=== PATIENT | female | born 1980 | race Caucasian/White ===

== ENCOUNTER 2017-10-12 18:47 | Emergency (ER) | payer MEDICAID, SELFPAY ==
--- NOTE | 2017-10-12 18:47 | DT_ITS ---
This patient was seen during an EMR downtime October 06, 2017 - October 13, 2017. This patient may have a combination of paper and electronic documentation or all paper documentation. All documentation is viewable within the e-chart portion of [facility] for each patient visit.
== END 2017-10-12 19:08 | disposition home or self-care (01) ==
PROVIDERS: Emergency Provider Emergency Medicine; Family Provider Family Medicine; PCP Family Medicine
DX: N63.0 Unspecified lump in unspecified breast (principal); N64.4 Mastodynia; N64.52 Nipple discharge; N64.59 Other signs and symptoms in breast; F17.200 Nicotine dependence, unspecified, uncomplicated
CPT/HCPCS: 99283

== ENCOUNTER → 2017-10-21 09:05 | Outpatient (CLI) | payer MEDICAID, SELFPAY ==
--- NOTE | 2017-10-21 09:07 | US_ITS ---
STUDY: ULTRASOUND BREAST - LEFT REASON FOR EXAM: Female, 37 years old. Palpable and painful lump left breast. TECHNIQUE: Axial and longitudinal images of the LEFT breast were performed with a high resolution ultrasound transducer. COMPARISON: Comparison is made with prior ultrasound the left breast dated May 09, 2017. FINDINGS: LEFT Breast: There now is evidence of a 2.6 cm x 2.7 cm x 3.2 cm complex solid and cystic mass in the retroareolar region of the breast. This corresponds to the mammographic abnormality. Increased vascularity is seen. This may represent an abscess collection. Drainage is recommended. US/Breast Limited Unilateral IMPRESSION: 2.6 cm x 2.7 cm x 3.2 cm complex solid and cystic mass in the retroareolar region of the left breast. This corresponds to the palpable abnormality. Abscess should be ruled out. ASSESSMENT CATEGORY: BIRADS Category 4: Suspicious -drainage Should Be Considered. A letter regarding these results will be sent to the patient by the facility within 30 days. Electronically Signed: Bennie Pace MD at 12:35 EDT Tel [phone], Service support ,
--- NOTE | 2017-10-21 09:40 | BI_ITS ---
MAMMOGRAPHY - UNILATERAL DIAGNOSTIC: LEFT BREAST REASON FOR EXAM: Female, 37 years old. Six-month history of a left nipple discharge and pain. Palpable abnormality. Left nipple inversion. PERTINENT HISTORY: Non-contributory. TECHNIQUE: Digital unilateral breast radha (3D mammographic acquisition) in the CC and MLO projections. 2-D mediolateral oblique (MLO) and craniocaudad (CC) views of both breasts were obtained. CAD: Full Field Digital Mammography with Computer Added Detection was performed. COMPARISON: Comparison is made with prior examination dated May 09, 2017. FINDINGS: Breast Composition: There are scattered areas of fibroglandular density. There now is evidence of a 3.6 cm x 3.5 cm slightly irregular nodular density in the retroareolar region of the breast. This corresponds to the palpable abnormality. Correlation with ultrasound is recommended. No other significant abnormalities are identified. BI/DIAG MAMM W/CAD, UNILAT IMPRESSION: New 3.6 cm x 3.5 cm slightly irregular nodular density in the retroareolar region of the left breast as described. Correlation with the ultrasound is recommended. ASSESSMENT CATEGORY: BIRADS Category 0: Incomplete. Need additional imaging evaluation. A letter regarding these results will be sent to the patient by the facility within 30 days. Approximately 10% of breast cancers are not detected by mammography. A normal mammogram should not delay biopsy of a clinically suspicious abnormality. Electronically Signed: Bennie Pace MD at 11:35 EDT Tel [phone], Service support ,
== END ==
PROVIDERS: Family Provider Family Medicine; PCP Family Medicine; Visit Provider Surgery
DX: N63.20 Unspecified lump in the left breast, unspecified quadrant (principal)
CPT/HCPCS: 76642; 77061; 77065; G0279

== ENCOUNTER → 2017-10-23 17:13 | Outpatient (CLI) | payer MEDICAID, SELFPAY | PROVIDERS: Visit Provider Surgery | DX: N61.1 Abscess of the breast and nipple (principal) | CPT/HCPCS: 87070; 87075; 87076; 87077; 87205 ==

== ENCOUNTER → 2017-12-16 12:22 | Outpatient (CLI) | payer MEDICAID, SELFPAY | PROVIDERS: Visit Provider Surgery | DX: N61.1 Abscess of the breast and nipple (principal) | CPT/HCPCS: 87070; 87075; 87076; 87077; 87205 ==

== ENCOUNTER → 2018-01-16 16:59 | Outpatient (CLI) | payer MEDICAID, SELFPAY | PROVIDERS: Visit Provider Surgery | DX: N61.1 Abscess of the breast and nipple (principal) | CPT/HCPCS: 87070; 87075; 87205 ==

== ENCOUNTER → 2018-01-23 16:07 | Outpatient (CLI) | payer MEDICAID, SELFPAY | PROVIDERS: Visit Provider Surgery | DX: N61.1 Abscess of the breast and nipple (principal) | CPT/HCPCS: 87070; 87075; 87205 ==

== ENCOUNTER 2018-02-05 08:14 | Day surgery (SDC) | payer MEDICAID, SELFPAY ==
--- NOTE | 2018-02-05 | ABS_PTH ---
PATIENT: ZA HART LOC: [facility] – [place] U#:[id number] AGE/SX: 37/F ROOM: RE02/05/[address]: Dr. Krunal Ray MD : 1980 BED: DIS: 02/05/2018 SPEC #: [id number] RECD: 02/05/18 13:27 STATUS: ESTEFANIA REEboni #: [id number] TAMARA: 02/05/18 00:[address]: Krunal Ray DEPT: SURGICAL PATHOLOGY RECD BY: Gigi Gomez ENTERED: 02/05/18 13:27 SP TYPE: Abscess OTHR DR: Dr. Reece Dixon MD Tissues: Left breast, NOS Procedures: Surgery Specimen Level III HEADER OPERATION: Surgical preparation incision, drainage and excisional debridement PRE-OP DIAGNOSIS: Left breast abscess, retroareolar TISSUE SUBMITTED: Left breast abscess MICROSCOPIC DIAGNOSIS Left breast abscess: Breast tissue with focal fat necrosis and chronic inflammation. SJ:elif 02/06/18 MICROSCOPIC DESCRIPTION Slides are reviewed. GROSS DESCRIPTION Received are three variable sized pieces of florez-yellow adipose tissue that in aggregate measure 4 x 4 x 1 cm. No mass lesion is identified. Ordnance Officer sections are submitted in one cassette. / SJ:rg 02/05/18 TC:3 CPT: 58092
--- NOTE | 2018-02-05 08:23 | EKG12_ITS ---
Test Reason : PREOP Blood Pressure : / mmHG Vent. Rate : 074 BPM Atrial Rate : 074 BPM P-R Int : 128 ms QRS Dur : 074 ms QT Int : 368 ms P-R-T Axes : 059 071 035 degrees QTc Int : 408 ms Normal sinus rhythm Normal ECG When compared with ECG of 04-SEP-2016 08:54, No significant change was found Confirmed by KYLIE OLVERA, HAILEE ([id number]), editorial cartoonist NATALIE BURGESS ([id number]) on 02/09/2018 3:59:53 PM Referred By: Krunal Ray Confirmed By:HAILEE ESPINAL MD
[2018-02-05 08:35] VITALS: BP 117/81; PULSE 72; RESP 16; TEMP 36.4; O2SAT 99; BMI 28.5
[2018-02-05 08:38] LABS: Hematocrit 42.5 % (37-47); Hemoglobin 14.6 g/dl (12.0-15.0); Mean Corp Hgb Conc 34.4 g/gl (32-36); Mean Corpuscular Hgb 31.5 pg (27.0-32.0); Mean Corpuscular Volume 91.8 fL (81-99); Mean Platelet Vol. 10.1 fl (6.2-12.0); Platelet Count 228 K/mm3 (150-450); RBC Distribution Width CV 13.8 % (11.6-14.6); RBC Distribution Width SD 45.9 fl (35.1-43.9); Red Blood Count 4.63 M/mm3 (4.2-5.4); White Blood Count 6.2 K/mm3 (4.4-11.0)
[2018-02-05 08:39] LABS: Scan Indicated on CBC? Y/N NO
--- NOTE | 2018-02-05 09:30 | ABS_PTH ---
PATIENT: ZA HART [place] [facility] [place][id number] AGE/SX: 37/F ROOM: RE02/05/[address]: Dr. Krunal Ray MD : 1980 BED: DIS: 02/05/2018 SPEC #: [id number] RECD: 02/06/18 08:31 STATUS: ESTEFANIA NORBERTO #: [id number] TAMARA: 02/05/18 09:[address]: Krunal Ray DEPT: SURGICAL PATHOLOGY RECD BY: Robinson Isaac ENTERED: 02/06/18 11:53 SP TYPE: Abscess OTHR DR: Dr. Reece Dixon MD Tissues: Left breast, NOS Procedures: Surgery Specimen Level IV HEADER OPERATION: Surgical preparation incision and drainage and excisional debridement PRE-OP DIAGNOSIS: Left breast abscess, retroareolar TISSUE SUBMITTED: Left breast abscess MICROSCOPIC DIAGNOSIS Left breast abscess: Breast tissue with focal fat necrosis, acute and chronic inflammation and foreign body giant cell reaction. See comment. SJ:elif 02/09/18 COMMENT Please make reference to previous specimen ([id number]) left breast abscess with diagnosis of breast tissue with focal fat necrosis and chronic inflammation. MICROSCOPIC DESCRIPTION Slides are reviewed. GROSS DESCRIPTION Received in fixative is one container labeled with the patient's name and designated left breast abscess. The specimen consists of a piece of fibroadipose tissue measuring 6 x 4 x 2 cm. A piece of skin is also noted at one edge of the specimen measuring 4 x 1.2 cm. Sections do not reveal any mass lesion. A focal congested area is noted. Mud Worker sections are submitted in four cassettes. Cassette 1 also contains the skin lesion. / JUAN DANIEL:elif 02/06/18 TC:2 CPT: 21050
[2018-02-05] MEDS: Metoclopramide 10 MG/2 ML Vial IV (10:00)
[2018-02-05] MEDS: Famotidine 20 MG Tablet 40 MG PO (10:00)
[2018-02-05] MEDS: DiphenhydrAMINE 50 MG/ML Syringe 25 MG IV (10:00)
--- NOTE | 2018-02-05 12:32 | OP.PN_ITS ---
Immediate Post-Op Note Date of Procedure: 02/05/18 Primary Surgeon/Physician: Krunal Ray grader tender: None Pre-Operative Diagnosis: 1. 3 cm recurrent painful abscess left breast in retroareolar region. 2. Nipple discharge left breast. 3. pseudoptosis breasts. 4. Smoker. Post-Operative Diagnosis: Same. Surgery/Procedure Performed:: Surgical preparation left breast in retroareolar region with incision and drainage and excisional debridement abscess (12 cm2). Description of Surgical Findings:: 37 year old woman presents with a recurrent left breast abscess that developed shortly after she gave about 16 months ago. She did not breast feed. She does have nipple drainage. She denies fever. She denies trauma. A mammogram and ultrasound was done on 10/21/17. The mammogram showed a 3.6 x 3.5 cm slightly irregular nodular density in the retroareolar region of the left breast. The ultrasound showed a 2.6 x 2.7 x 3.2 cm complex solid and cystic mass in the retroareolar region of the left breast suspicious for abscess. She saw Dr. Bhakta who performed drainage of the fluid collection in her office under ultrasound guidance. She did this 4 times according to the patient. The fluid collection has recurred. A recent culture on 01/16/18 showed Anaerobic cocci. She was placed on Augmentin. Because of its location in the retroareolar region, she presented for surgical options for treatment. Today the patient underwent surgical preparation left breast in retroareolar region with incision and drainage and excisional debridement abscess (12 cm2). Size of defect left breast in retroareolar region - 6 x 2 x 5 cm. Estimated Blood Loss: 10 ml. Specimen's removed: Abscess left breast in retroareolar region to Pathology and Microbiology. Drains: None. Type of Anesthesia:: General - Admit VTE Documentation VTE Present on Admission: No VTE Mechan Device Prophylaxis: SCD's VTE Pharm Prophylaxis ordered?: No
[2018-02-05 12:36] VITALS: BP 106/61; BP 117/81; PULSE 87; RESP 18; TEMP 36.6; O2SAT 93
--- NOTE | 2018-02-05 12:37 | PCM.DC ---
You will use the following diet at home:: No restrictions, Other - encourage nutritional supplementation with protein to help the healing process. Discharge Activity: May not drive while taking narcotic pain medications., May Shower, May Not Shower - until Friday02/09/18. After that may shower on the days the dressing is changed., - - keep head elevated. no heavy lifting. May shower in (days): 4 May resume sexual activity in: No Restrictions Weight Bearing Status: Weight bearing as tolerated Lifting Restrictions: 20 lbs. Keep extremity elevated above heart level: - - elevate head. Call your doctor if your incision/area has: Continuous Slow Oozing, Sudden Increased Bleeding, Increased Pain/ Swelling, Increased Redness, Foul Smelling Discharge, Swelling at the incision site Call your doctor if you observe: Fever of 101 or Higher, Coldness, Increased Pain, Shortness of breath, Chest pain, Calf discomfort, Uncontrolled pain Suture Line Care: - - dressing changes with Silver dressings. Will do first dressing change in the office. Cleanse incision/area with: - - beginning friday02/09/18, may get the wound wet in the shower on the days the dressing is changed. Allergies/Adverse Reactions: Allergies Penicillins Allergy (Verified 02/02/18 13:43) Hives Medications to take at Discharge oxycodone-acetaminophen 5 mg-325 mg tablet See Rx Instructions PO 4X/DAY PRN #40 tab 02/04/18 Amoxicillin/Potassium Clav [Amox-Clav 875-125 mg Tablet] 1 tab PO BID #20 tab 02/05/18 Oxycodone HCl/Acetaminophen [Percocet 5/325] 1 - 2 tab PO Q4H PRN PRN 7 Days #40 tab 02/05/18 The following prescriptions were given: Oxycodone HCl/Acetaminophen [Percocet 5/325] 1 - 2 tab PO Q4H PRN PRN 7 Days #40 tab PRN Reason: Pain Amoxicillin/Potassium Clav [Amox-Clav 875-125 mg Tablet] 1 tab PO BID #20 tab Primary Care Physician: Reece Dixon MD [Primary Care Provider] - Test Results: Test results from this visit will be discussed in further detail at your follow-up appointment, if applicable. Please Follow Up With: Krunal Ray MD When: friday02/06/18. call [phone] for appt. Proposed Discharge Date: 02/05/18
--- NOTE | 2018-02-05 12:42 | DCINST_ITS ---
You will use the following diet at home:: No restrictions, Other - encourage nutritional supplementation with protein to help the healing process. Discharge Activity: May not drive while taking narcotic pain medications., May Shower, May Not Shower - until Friday02/09/18. After that may shower on the days the dressing is changed., - - keep head elevated. no heavy lifting. May shower in (days): 4 May resume sexual activity in: No Restrictions Weight Bearing Status: Weight bearing as tolerated Lifting Restrictions: 20 lbs. Keep extremity elevated above heart level: - - elevate head. Call your doctor if your incision/area has: Continuous Slow Oozing, Sudden Increased Bleeding, Increased Pain/ Swelling, Increased Redness, Foul Smelling Discharge, Swelling at the incision site Call your doctor if you observe: Fever of 101 or Higher, Coldness, Increased Pain, Shortness of breath, Chest pain, Calf discomfort, Uncontrolled pain Suture Line Care: - - dressing changes with Silver dressings. Will do first dressing change in the office. Cleanse incision/area with: - - beginning friday02/09/18, may get the wound wet in the shower on the days the dressing is changed. Allergies/Adverse Reactions: Allergies Penicillins Allergy (Verified 02/02/18 13:43) Hives Medications to take at Discharge oxycodone-acetaminophen 5 mg-325 mg tablet See Rx Instructions PO 4X/DAY PRN #40 tab 02/04/18 Amoxicillin/Potassium Clav [Amox-Clav 875-125 mg Tablet] 1 tab PO BID #20 tab 02/05/18 Oxycodone HCl/Acetaminophen [Percocet 5/325] 1 - 2 tab PO Q4H PRN PRN 7 Days #40 tab 02/05/18 The following prescriptions were given: Oxycodone HCl/Acetaminophen [Percocet 5/325] 1 - 2 tab PO Q4H PRN PRN 7 Days #40 tab PRN Reason: Pain Amoxicillin/Potassium Clav [Amox-Clav 875-125 mg Tablet] 1 tab PO BID #20 tab Primary Care Physician: Reece Dixon MD [Primary Care Provider] - Test Results: Test results from this visit will be discussed in further detail at your follow- up appointment, if applicable. Please Follow Up With: Krunal Ray MD When: friday02/06/18. call [phone] for appt. Proposed Discharge Date: 02/05/18
[2018-02-05 12:46] VITALS: BP 104/69; BP 117/81; PULSE 86; RESP 16; TEMP 36.9; O2SAT 95
[2018-02-05 13:22] VITALS: BP 117/81
--- NOTE | 2018-02-05 16:47 | PCM.OPRPT ---
Report of Operation Date of Procedure: 02/05/18 Pre-Operative Diagnosis: 1. 3 cm recurrent painful abscess left breast in retroareolar region. 2. Nipple discharge left breast. 3. pseudoptosis breasts. 4. Smoker. Post-Operative Diagnosis: Same. Surgery/Procedure Performed:: Surgical preparation left breast in retroareolar region with incision and drainage and excisional debridement abscess (12 cm2). Description of Surgical Findings:: 37 year old woman presents with a recurrent left breast abscess that developed shortly after she gave about 16 months ago. She did not breast feed. She does have nipple drainage. She denies fever. She denies trauma. A mammogram and ultrasound was done on 10/21/17. The mammogram showed a 3.6 x 3.5 cm slightly irregular nodular density in the retroareolar region of the left breast. The ultrasound showed a 2.6 x 2.7 x 3.2 cm complex solid and cystic mass in the retroareolar region of the left breast suspicious for abscess. She saw Dr. Bhakta who performed drainage of the fluid collection in her office under ultrasound guidance. She did this 4 times according to the patient. The fluid collection has recurred. A recent culture on 01/16/18 showed Anaerobic cocci. She was placed on Augmentin. Because of its location in the retroareolar region, she presents today for operative intervention. Patient was informed of the risks and complications of the procedure including alternatives to surgery. These were discussed with the patient personally. Patient voices understanding and wishes to proceed. Some of the risks and complications were included in a form from the [employer]. Encouraged patient to stop smoking as it may have deleterious effects on wound healing. Size of defect left breast in retroareolar region - 6 x 2 x 5 cm. hand hose cutter: None Type of Anesthesia:: General Specimen's removed: Abscess left breast in retroareolar region to Pathology and Microbiology. Drains: None. Estimated Blood Loss (mL): 10 ml. Description of Procedure: Patient was taken to OR in supine position and was placed under general anesthesia. The left breast was prepped and draped in the usual fashion. SCD's were placed for DVT prophylaxis. Perioperative antibiotics were given intravenously. A crescenteric marking was made on inferior aspect of the areola. Using xylocaine with epinephrine, these markings were infiltrated. After waiting 5 minutes for the anesthetic to take effect, incision was made in a crescenteric fashion into the subcutaneous tissue. A lot of palpable hardness was noted. Some pus was seen in the retroareolar area. A lot of fat necrosis was present. The palpable hardness was excised which extended up to the nipple areolar complex. The ducts that appeared to be involved with the infection were excised and debrided. During the debridement, a large cavity was entered with thickened capsular scar tissue. This thickened capsular tissue was excised and debrided. Some of the tissue was sent to Microbiology for culture. The rest of the tissue was sent to Pathology for analysis to rule out carcinoma. The wound was irrigated with saline. Hemostasis was obtained with electrocautery. The size of the defect after incision and drainage and excisional debridement was 6 x 2 x 5 cm. The wound was packed with Mepitel nonadherent dressing followed by Kerlix gauze and Betadine followed by ABD pad and compression JESUS wrap. Patient tolerated the procedure well and was sent to PACU in satisfactory condition. Patient will be sent home on antibiotics and pain medication. Patient will followup in the office tomorrow for a wound check and will begin Silver dressing changes. The following week, we will discuss the Pathology report and the Microbiology report with the patient. A positive culture may necessitate antibiotic modification. Will encourage nutritional supplementation with protein to help the healing process. Grafts/Implants Used: None. - Complications None. - Admit VTE Documentation VTE Present on Admission: No VTE Mechan Device Prophylaxis: SCD's VTE Pharm Prophylaxis ordered?: No Code Visit Surgery Charges CPT - 43116 ICD-10 - N61.1, N64.4, N63.42, N64.52, N64.89, S21.002A, F17.200 06978 N61.1, N64.4, N63.42, N64.52, N64.89, F17.200
--- NOTE | 2018-02-06 11:48 | OP.PCM_ITS ---
Report of Operation Date of Procedure: 02/05/18 Pre-Operative Diagnosis: 1. 3 cm recurrent painful abscess left breast in retroareolar region. 2. Nipple discharge left breast. 3. pseudoptosis breasts. 4. Smoker. Post-Operative Diagnosis: Same. Surgery/Procedure Performed:: Surgical preparation left breast in retroareolar region with incision and drainage and excisional debridement abscess (12 cm2). Description of Surgical Findings:: 37 year old woman presents with a recurrent left breast abscess that developed shortly after she gave about 16 months ago. She did not breast feed. She does have nipple drainage. She denies fever. She denies trauma. A mammogram and ultrasound was done on 10/21/17. The mammogram showed a 3.6 x 3.5 cm slightly irregular nodular density in the retroareolar region of the left breas t. The ultrasound showed a 2.6 x 2.7 x 3.2 cm complex solid and cystic mass in the retroareolar region of the left breast suspicious for abscess. She saw Dr. Bhakta who performed drainage of the fluid collection in her office under ultrasound guidance. She did this 4 times according to the patient. The fluid collection has recurred. A recent culture on 01/16/18 showed Anaerobic cocci. She was placed on Augmentin. Because of its location in the retroareolar region, she presents today for operative intervention. Patient was informed of the risks and complications of the procedure including alternatives to surgery. These were discussed with the patient personally. Patient voices understanding and wishes to proceed. Some of the risks and complications were included in a form from the [employer]. Encouraged patient to stop smoking as it may have deleterious effects on wound healing. Size of defect left breast in retroareolar region - 6 x 2 x 5 cm. ceiling cleaner: None Type of Anesthesia:: General Specimen's removed: Abscess left breast in retroareolar region to Pathology and Microbiology. Drains: None. Estimated Blood Loss (mL): 10 ml. Description of Procedure: Patient was taken to OR in supine position and was placed under general anesthesia. The left breast was prepped and draped in the usual fashion. SCD's were placed for DVT prophylaxis. Perioperative antibiotics were given intravenously. A crescenteric marking was made on inferior aspect of the areola. Using xylocaine with epinephrine, these markings were infiltrated. After waiting 5 minutes for the anesthetic to take effect, incision was made in a crescenteric fashion into the subcutaneous tissue. A lot of palpable hardness was noted. Some pus was seen in the retroareolar area. A lot of fat necrosis was present. The palpable hardness was excised which extended up to the nipple areolar complex. The ducts that appeared to be involved with the infection were excised and debrided. During the debridement, a large cavity was entered with thickened capsular scar tissue. This thickened capsular tissue was excised and debrided. Some of the tissue was sent to Microbiology for culture. The rest of the tissue was sent to Pathology for analysis to rule out carcinoma. The wound was irrigated with saline. Hemostasis was obtained with electrocautery. The size of the defect after incision and drainage and excisional debridement was 6 x 2 x 5 cm. The wound was packed with Mepitel nonadherent dressing followed by Kerlix gauze and Betadine followed by ABD pad and compression JESUS wrap. Patient tolerated the procedure well and was sent to PACU in satisfactory condition. Patient will be sent home on antibiotics and pain medication. Patient will followup in the office tomorrow for a wound check and will begin Si lver dressing changes. The following week, we will discuss the Pathology report and the Microbiology report with the patient. A positive culture may necessitate antibiotic modification. Will encourage nutritional supplementation with protein to help the healing process. Grafts/Implants Used: None. - Complications None. - Admit VTE Documentation VTE Present on Admission: No VTE Mechan Device Prophylaxis: SCD's VTE Pharm Prophylaxis ordered?: No Code Visit Surgery Charges CPT - 19157 ICD-10 - N61.1, N64.4, N63.42, N64.52, N64.89, S21.002A, F17.200 17182 N61.1, N64.4, N63.42, N64.52, N64.89, F17.200
== END 2018-02-05 13:27 | disposition home or self-care (01) ==
LOC: SDC 08:15 → AC 08:15
PROVIDERS: Anesthesiology; Family Provider Family Medicine; PCP Family Medicine; Referring Provider Surgery; Visit Provider Surgery
PROC: (CPT 19020; principal; 2018-02-05 09:20)
DX: N61.1 Abscess of the breast and nipple (principal); N64.1 Fat necrosis of breast; N64.4 Mastodynia; N63.42 Unspecified lump in left breast, subareolar; N64.52 Nipple discharge; N64.89 Other specified disorders of breast; F17.200 Nicotine dependence, unspecified, uncomplicated
CPT/HCPCS: 15002; 19020; 36415; 85027; 87070; 87075; 87077; 87102; 87186; 87205; 87206; 88304; 88305; 93005; J7120; J2405

== ENCOUNTER 2018-06-04 08:39 | Day surgery (SDC) | payer MEDICAID, SELFPAY ==
--- NOTE | 2018-06-03 23:37 | HP.PCM_ITS ---
History and Physical Date of Admission: 06/04/18 HISTORY OF PRESENT ILLNESS 38 year old woman presents with a painful recurrent left breast abscess scar contour deformity in the periareolar area. She initially developed the abscess shortly after she gave about 18 months ago. She did not breast feed. She had nipple drainage. She denies fever. She denies trauma. A mammogram and ultrasound was done on 10/21/17. The mammogram showed a 3.6 x 3.5 cm slightly irregular nodular density in the retroareolar region of the left breast. The ultrasound showed a 2.6 x 2.7 x 3.2 cm complex solid and cystic mass in the retroareolar region of the left breast suspicious for abscess. She saw Dr. Bhakta who performed drainage of the fluid collection in her office under ultrasound guidance. She did this 4 times according to the patient. The fluid collection has recurred. A recent culture on 01/16/18 showed Anaerobic cocci. She was placed on Augmentin. Because of its location in the retroareolar region, she went to the OR on 02/05/18 where she underwent surgical preparation left breast in retroareolar region with incision and drainage and excisional debridement abscess (12 cm2). The wound was left open and daily Silver dressing changes were started. Operative culture showed MRSE and she was treated with Levaquin. After a couple of months the wound healed with residual painful scar contour deformity. She presents today for further debridement with surgical preparation of the left breast with complex secondary wound closure. PAST MEDICAL HISTORY history tubal recurrent painful abscess left breast in retroareolar region. Nipple discharge left breast. pseudoptosis breasts. PAST SURGICAL HISTORY section Surgical preparation left breast in retroareolar region with incision and d rainage and excisional debridement abscess (12 cm2) - 02/05/18 ALLERGIES Penicillins MEDICATIONS Augmentin and Levaquin in the past. FAMILY HISTORY Grandfather - Colon cancer Uncle - Colon cancer Grandfather - Heart disease, Hypertension Grandmother - Heart disease, Hypertension SOCIAL HISTORY Smoking Status: Current every day smoker alcohol intake: current alcohol intake frequency: a few times a month substance use type: does not use REVIEW OF SYSTEMS General - Denies fever, fatigue, and weight loss. Eyes - Denies cataracts and glaucoma. ENT - Denies nasal congestion and sore throat. Endocrine - Denies excessive thirst and urination. Skin - Denies skin cancer. Has a left breast recurrent abscess scar contour deformity in the retroareolar region. Had operative incision and drainage of the abscess in 02/19. Musculoskeletal - Denies joint pain, joint stiffness, weakness of muscles and joints, back pain, and arthritis. Neuro - Denies headaches. Cardiovascular - Denies chest pain, fatigue, and shortness of breath with exertion. Psych - Denies anxiety and depression. Respiratory - Denies chronic cough and shortness of breath. Patient is a smoker. Gastrointestinal - Denies nausea, vomiting, diarrhea, and constipation. Hematologic - Denies abnormal bruising and bleeding. Genitourinary - Denies hematuria and urinary frequency. PHYSICAL EXAMINATION General - Alert and Oriented. Bra size is 36 C. HEENT - PERRL. EOMI. Throat is clear. Neck - Supple and nontender. No cervical adenopathy. Breasts - In the left breast there is a periareolar scar inferiorly. There is a indentation scar contour deformity that is tender to palpation. Measures 6 cm. No purulent drainage noted. No palpable masses. No breast masses in the right breast. No axillary adenopathy. Breast width is 15 cm. Nipple is located at inframammary fold. Some pseudoptosis is present. No skin retraction. No skin dimpling. Lungs - Clear to auscultation. Heart - Regular rate and rhythm. Abdomen - Soft and nondistended. Extremities - FROM. No axillary adenopathy. Radial pulses are palpable. Neuro - CN II-XII grossly intact. Psych - Normal mood and affect. ASSESSMENT 1. 6 cm recurrent painful abscess scar contour deformity left breast at periareolar area. 2. s/p incision and drainage of abscess. 3. Smoker. PLAN Patient has painful abscess scar contour deformity left breast at periareolar area. Recommend surgical preparation of the painful scar contour deformity with complex secondary wound closure. Will send tissue to Pathology for analysis to rule out carcinoma. Will send tissue to Microbiology for culture. A positive culture will necessitate antibiotic therapy. At the time of the first operative drainage procedure, the culture showed MRSE. Depending on the size of the cavity, I may spray some Jennifer absorbable hemostat into the wound to minimize seroma formation. Also a drain may be necessary as well. Surgery will be done under general anesthesia on an outpatient basis. Patient was informed of the risks and complications of the procedure including alternatives to surgery. These were discussed with the patient personally. Patient voices understanding and wishes to proceed. Some of the risks and complications were included in a form from the [employer]. Encouraged patient to stop smoking as it may have deleterious effects on wound healing.
[2018-06-04] VITALS (7 sets, daily range): BP systolic 99–112; BP diastolic 55–81; PULSE 76–90; RESP 16–18; TEMP 36.2–36.6; O2SAT 93–100; BMI 30.1
--- NOTE | 2018-06-04 | BRBX_PTH ---
PATIENT: ZA HART [place] [facility] [place][id number] AGE/SX: 38/F ROOM: RE06/04/[address]: Dr. Krunal Ray MD : 1980 BED: DIS: 06/04/2018 SPEC #: [id number] RECD: 06/04/18 14:41 STATUS: CRISTINAOscar REEboni #: [id number] TAMARA: 06/04/18 00:[address]: Krunal Ray DEPT: SURGICAL PATHOLOGY RECD BY: Gigi Gomez ENTERED: 06/04/18 14:41 SP TYPE: BREAST BX OTHR DR: Dr. Reece Dixon MD Tissues: Left breast, NOS Procedures: Surgery Specimen Level IV HEADER OPERATION: Excisional debridement, scar, breast, periareolar area complex PRE-OP DIAGNOSIS: Recurrent painful abscess, scar contour deformity left breast in retroareolar region, status post incision and drainage of abscess TISSUE SUBMITTED: Left breast tissue MICROSCOPIC DIAGNOSIS Left breast tissue, excision: Fibrosis, fat necrosis and mature granulation. Mild chronic inflammation. Benign histiocytic reaction to polarizable material. No evidence of malignancy. Skin with no pathologic change. AM:elif 06/05/18 MICROSCOPIC DESCRIPTION Slides are reviewed. GROSS DESCRIPTION Received in fixative is one container labeled with the patient's name and designated left breast tissue. The specimen consists of an irregular fragment of light florez skin with attached yellow fatty tissue. The specimen measures 4 x 2.5 x 1 cm. The specimen is inked and serially sectioned. No distinct mass lesion is identified. The cut surfaces are florez-yellow in color. The cutaneous surface is crinkled and possibly represents a scar. The specimen is serially sectioned and totally submitted in three cassettes. / AM:elif 06/04/18 TC:3 [facility]: [id number]
[2018-06-04] MEDS: Vancomycin IV 1,000 MG/200 ML BAG 200 MG IV (08:59)
[2018-06-04] MEDS: Mupirocin Ointment 22gm Tube 1 APPLIC (11:20)
--- NOTE | 2018-06-04 11:29 | PCM.IMDPSTOP ---
Immediate Post-Op Note Date of Procedure: 06/04/18 Primary Surgeon/Physician: Krunal Ray MD internal audit consultant: None Pre-Operative Diagnosis: 1. 6 cm recurrent painful infected abscess scar contour deformity left breast at periareolar area. 2. s/p incision and drainage of abscess. 3. Smoker. Post-Operative Diagnosis: Same. Surgery/Procedure Performed:: 1. Surgical preparation left breast at periareolar area with excisional debridement 6 cm recurrent painful infected abscess scar contour deformity. 2. Reconstruction with 8 cm complex secondary wound closure. Description of Surgical Findings:: 38 year old woman presents with a painful recurrent left breast abscess scar contour deformity in the periareolar area. She initially developed the absces shortly after she gave about 18 months ago. She did not breast feed. She had nipple drainage. She denies fever. She denies trauma. A mammogram and ultrasound was done on 10/21/17. The mammogram showed a 3.6 x 3.5 cm slightly irregular nodular density in the retroareolar region of the left breast. The ultrasound showed a 2.6 x 2.7 x 3.2 cm complex solid and cystic mass in the retroareolar region of the left breast suspicious for abscess. She saw Dr. Bhakta who performed drainage of the fluid collection in her office under ultrasound guidance. She did this 4 times according to the patient. The fluid collection has recurred. A recent culture on 01/16/18 showed Anaerobic cocci. She was placed on Augmentin. Because of its location in the retroareolar region, she went to the OR on 02/05/18 where she underwent surgical preparation left breast in retroareolar region with incision and drainage and excisional debridement abscess (12 cm2). The wound was left open and daily Silver dressing changes were started. Operative culture showed MRSE and she was treated with Levaquin. After a couple of months the wound healed with residual painful scar contour deformity. She presents today for further debridement with surgical preparation of the left breast with complex secondary wound closure. Today the patient underwent surgical preparation left breast at periareolar area with excisional debridement 6 cm recurrent painful infected abscess scar contour deformity and reconstruction with 8 cm complex secondary wound closure. I used Jennifer absorbable hemostat. Reference Number - [id number]. Lot Number - [id number]. Expiration - March 01, 2023. Estimated Blood Loss: 5 ml. Specimen's removed: Recurrent infected painful infected abscess scar contour deformity left breast at periareolar area to Pathology and Microbiology. Drains: Kemal. Type of Anesthesia:: General - Admit VTE Documentation VTE Present on Admission: No VTE Mechan Device Prophylaxis: SCD's VTE Pharm Prophylaxis ordered?: No
--- NOTE | 2018-06-04 11:40 | PCM.DC ---
You will use the following diet at home:: No restrictions Discharge Activity: May not drive while taking narcotic pain medications., May Not Shower - until the drain is removed in the office., - - keep head elevated. wear sports bra for compression. May shower in (days): 7 - after the drain is removed in the office. May resume sexual activity in: No Restrictions Weight Bearing Status: Weight bearing as tolerated Keep extremity elevated above heart level: - - elevate head. Call your doctor if your incision/area has: Continuous Slow Oozing, Sudden Increased Bleeding, Increased Pain/ Swelling, Increased Redness, Foul Smelling Discharge, Swelling at the incision site Call your doctor if you observe: Fever of 101 or Higher, Coldness, Increased Pain, Shortness of breath, Chest pain, Calf discomfort, Uncontrolled pain Suture Line Care: - - apply antibiotic ointment to suture line daily. Change Dressing in (Days):: 2 - dry dressings daily after removal of operative dressing in two days. Cleanse incision/area with: - - may get incision wet in the shower after the drain is removed in the office. Drain: Suction - oscar drain to bulb suction. empty and record drainage output daily. Allergies/Adverse Reactions: Allergies Penicillins Allergy (Verified 05/29/18 11:35) Hives Medications to take at Discharge Oxycodone HCl/Acetaminophen [Percocet 5/325] 1 tab PO Q4H PRN PRN 7 Days #40 tab 06/04/18 levoFLOXacin tablet [Levaquin tablet] 750 mg PO DAILY #10 tab 06/04/18 The following prescriptions were given: Oxycodone HCl/Acetaminophen [Percocet 5/325] 1 tab PO Q4H PRN PRN 7 Days #40 tab PRN Reason: Pain levoFLOXacin tablet [Levaquin tablet] 750 mg PO DAILY #10 tab Primary Care Physician: Reece Dixon MD [Primary Care Provider] - Test Results: Test results from this visit will be discussed in further detail at your follow-up appointment, if applicable. Please Follow Up With: Krunal Ray MD When: one week. call [phone] for appt. Proposed Discharge Date: 06/04/18
--- NOTE | 2018-06-04 11:43 | DCINST_ITS ---
You will use the following diet at home:: No restrictions Discharge Activity: May not drive while taking narcotic pain medications., May Not Shower - until the drain is removed in the office., - - keep head elevated. wear sports bra for compression. May shower in (days): 7 - after the drain is removed in the office. May resume sexual activity in: No Restrictions Weight Bearing Status: Weight bearing as tolerated Keep extremity elevated above heart level: - - elevate head. Call your doctor if your incision/area has: Continuous Slow Oozing, Sudden Increased Bleeding, Increased Pain/ Swelling, Increased Redness, Foul Smelling Discharge, Swelling at the incision site Call your doctor if you observe: Fever of 101 or Higher, Coldness, Increased Pain, Shortness of breath, Chest pain, Calf discomfort, Uncontrolled pain Suture Line Care: - - apply antibiotic ointment to suture line daily. Change Dressing in (Days):: 2 - dry dressings daily after removal of operative dressing in two days. Cleanse incision/area with: - - may get incision wet in the shower after the drain is removed in the office. Drain: Suction - oscar drain to bulb suction. empty and record drainage output daily. Allergies/Adverse Reactions: Allergies Penicillins Allergy (Verified 05/29/18 11:35) Hives Medications to take at Discharge Oxycodone HCl/Acetaminophen [Percocet 5/325] 1 tab PO Q4H PRN PRN 7 Days #40 tab 06/04/18 levoFLOXacin tablet [Levaquin tablet] 750 mg PO DAILY #10 tab 06/04/18 The following prescriptions were given: Oxycodone HCl/Acetaminophen [Percocet 5/325] 1 tab PO Q4H PRN PRN 7 Days #40 tab PRN Reason: Pain levoFLOXacin tablet [Levaquin tablet] 750 mg PO DAILY #10 tab Primary Care Physician: Reece Dixon MD [Primary Care Provider] - Test Results: Test results from this visit will be discussed in further detail at your follow- up appointment, if applicable. Please Follow Up With: Krunal Ray MD When: one week. call [phone] for appt. Proposed Discharge Date: 06/04/18
--- NOTE | 2018-06-04 17:12 | PCM.OPRPT ---
Report of Operation Date of Procedure: 06/04/18 Pre-Operative Diagnosis: 1. 6 cm recurrent painful infected abscess scar contour deformity left breast at periareolar area. 2. s/p incision and drainage of abscess. 3. Smoker. Post-Operative Diagnosis: Same. Surgery/Procedure Performed:: 1. Surgical preparation left breast at periareolar area with excisional debridement 6 cm recurrent painful infected abscess scar contour deformity. 2. Reconstruction with 8 cm complex secondary wound closure. Description of Surgical Findings:: 38 year old woman presents with a painful recurrent left breast abscess scar contour deformity in the periareolar area. She initially developed the absces shortly after she gave about 18 months ago. She did not breast feed. She had nipple drainage. She denies fever. She denies trauma. A mammogram and ultrasound was done on 10/21/17. The mammogram showed a 3.6 x 3.5 cm slightly irregular nodular density in the retroareolar region of the left breast. The ultrasound showed a 2.6 x 2.7 x 3.2 cm complex solid and cystic mass in the retroareolar region of the left breast suspicious for abscess. She saw Dr. Bhakta who performed drainage of the fluid collection in her office under ultrasound guidance. She did this 4 times according to the patient. The fluid collection has recurred. A recent culture on 01/16/18 showed Anaerobic cocci. She was placed on Augmentin. Because of its location in the retroareolar region, she went to the OR on 02/05/18 where she underwent surgical preparation left breast in retroareolar region with incision and drainage and excisional debridement abscess (12 cm2). The wound was left open and daily Silver dressing changes were started. Operative culture showed MRSE and she was treated with Levaquin. After a couple of months the wound healed with residual painful scar contour deformity. She presents today for further debridement with surgical preparation of the left breast with complex secondary wound closure. Patient was informed of the risks and complications of the procedure including alternatives to surgery. These were discussed with the patient personally. Patient voices understanding and wishes to proceed. Some of the risks and complications were included in a form from the [employer]. Encouraged patient to stop smoking as it may have deleterious effects on wound healing. I used Jennifer absorbable hemostat. Reference Number - [id number]. Lot Number - [id number]. Expiration - March 01, 2023. night coordinator: None Type of Anesthesia:: General Specimen's removed: Recurrent infected painful infected abscess scar contour deformity left breast at periareolar area to Pathology and Microbiology. Drains: Kemal. Estimated Blood Loss (mL): 5 ml. Description of Procedure: Patient was taken to OR in supine position and was placed under general anesthesia. The left breast was prepped and draped in the usual fashion. SCD's were placed for DVT prophylaxis. Perioperative antibiotics were given intravenously. Using xylocaine with epinephrine, the left breast periareolar scar contour deformity was infiltrated. After waiting 5 minutes for the anesthetic to take effect, I proceeded with surgical preparation of the left breast with excision of the recurrent painful infected abscess scar contour deformity down into the subcutaneous tissue. There was a lot of dense scar tissue present. Excision included some scar tissue around ducts to the nipple. After excision, the remaining breast tissue was soft. Extra release of scar tissue in the area of the inferior areola was done to be able to stretch it out to aid in wound closure. Some of the tissue was sent to Microbiology for culture. A positive culture will necessitate antibiotic therapy. The rest of the tissue was sent to Pathology for analysis to rule out carcinoma. The wound was irrigated with saline. Hemostasis was obtained with electrocautery. The residual wound pocket was large and I placed a size 15 Kemal drain through a separate stab incision inferiorly in the area of the breast crease and secured to the skin with 3-0 Nylon suture. I sprayed the left breast wound with Jennifer absorbable hemostat to minimize seroma formation. I then proceeded with complex secondary wound closure with 2-0 Vicryl figure of eight interrupted sutures for the deep breast tissue. After each suture, I checked to make sure there was minimal dimpling or deformity of the breast skin. The deep dermis and subcutaneous tissue was approximated with 3-0 Monocryl interrupted sutures. The skin was approximated with the inferior areola with 4-0 Prolene simple interrupted and vertical mattress interrupted sutures. The length of the complex secondary wound closure was 8 cm. Antibiotic ointment was applied to the suture line followed by gauze dressing. She will continue her sports bra at home for compression. Patient tolerated the procedure well and was sent to PACU in satisfactory condition. Patient will be sent home on antibiotics and pain medication. She will keep her head elevated during the initial postop period. Patient will followup in a week for a wound check and for discussion of the pathology report and for discussion of the microbiology report. Will remove the sutures in 2 weeks. Will remove the drain in 1-2 weeks. Grafts/Implants Used: None. - Complications None. - Admit VTE Documentation VTE Present on Admission: No VTE Mechan Device Prophylaxis: SCD's VTE Pharm Prophylaxis ordered?: No Code Visit Surgery Charges CPT - 68364 ICD-10 - N61.1, N64.4, N63.42, S21.002S, F17.200 95603 N61.1, N64.4, N63.42, S21.002S, F17.200
--- NOTE | 2018-06-05 10:13 | OP.PCM_ITS ---
Report of Operation Date of Procedure: 06/04/18 Pre-Operative Diagnosis: 1. 6 cm recurrent painful infected abscess scar contour deformity left breast at periareolar area. 2. s/p incision and drainage of abscess. 3. Smoker. Post-Operative Diagnosis: Same. Surgery/Procedure Performed:: 1. Surgical preparation left breast at periareolar area with excisional debridement 6 cm recurrent painful infected abscess scar contour deformity. 2. Reconstruction with 8 cm complex secondary wound closure. Description of Surgical Findings:: 38 year old woman presents with a painful recurrent left breast abscess scar contour deformity in the periareolar area. She initially developed the absces shortly after she gave about 18 months ago. She did not breast feed. She had nipple drainage. She denies fever. She denies trauma. A mammogram and ultrasound was done on 10/21/17. The mammogram showed a 3.6 x 3.5 cm slightly irregular nodular density in the retroareolar region of the left breast. The ultrasound showed a 2.6 x 2.7 x 3.2 cm complex solid and cystic mass in the retroareolar region of the left breast suspicious for abscess. She saw Dr. Bhakta who performed drainage of the fluid collection in her office under ultrasound guidance. She did this 4 times according to the patient. The fluid collection has recurred. A recent culture on 01/16/18 showed Anaerobic cocci. She was placed on Augmentin. Because of its location in the retroareolar region, she went to the OR on 02/05/18 where she underwent surgical preparation left breast in retroareolar region with incision and drainage and excisional debridement abscess (12 cm2). The wound was left open and daily Silver dressing changes were started. Operative culture showed MRSE and she was treated with Levaquin. After a couple of months the wound healed with residual painful scar contour deformity. She presents today for further debridement with surgical preparation of the left breast with complex secondary wound closure. Patient was informed of the risks and complications of the procedure including alternatives to surgery. These were discussed with the patient personally. Patient voices understanding and wishes to proceed. Some of the risks and complications were included in a form from the [employer] [employer]. Encouraged patient to stop smoking as it may have deleterious effects on wound healing. I used Jennifer absorbable hemostat. Reference Number - [id number]. Lot Number - [id number]. Expiration - March 01, 2023. 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 Drains: Kemal. Estimated Blood Loss (mL): 5 ml. Description of Procedure: Patient was taken to OR in supine position and was placed under general anesthesia. The left breast was prepped and draped in the usual fashion. SCD's were placed for DVT prophylaxis. Perioperative antibiotics were given intravenously. Using xylocaine with epinephrine, the left breast periareolar scar contour deformity was infiltrated. After waiting 5 minutes for the anesthetic to take effect, I proceeded with surgical preparation of the left breast with excision of the recurrent painful infected abscess scar contour deformity down into the subcutaneous tissue. There was a lot of dense scar tissue present. Excision included some scar tissue around ducts to the nipple. After excision, the remaining breast tissue was soft. Extra release of scar tissue in the area of the inferior areola was done to be able to stretch it out to aid in wound closure. Some of the tissue was sent to Microbiology for culture. A positive culture will necessitate antibiotic therapy. The rest of the tissue was sent to Pathology for analysis to rule out carcinoma. The wound was irrigated with saline. Hemostasis was obtained with electrocautery. The residual wound pocket was large and I placed a size 15 Kemal drain through a separate stab incision inferiorly in the area of the breast crease and secured to the skin with 3-0 Nylon suture. I sprayed the left breast wound with Jennifer absorbable hemostat to minimize seroma formation. I then proceeded with complex secondary wound closure with 2-0 Vicryl figure of eight interrupted sutures for the deep breast tissue. After each suture, I checked to make sure there was minimal dimpling or deformity of the breast skin. The deep dermis and subcutaneous tissue was approximated with 3-0 Monocryl interrupted sutures. The skin was approximated with the inferior areola with 4-0 Prolene simple interrupted and vertical mattress interrupted sutures. The length of the complex secondary wound closure was 8 cm. Antibiotic ointment was applied to the suture line followed by gauze dressing. She will continue her sports bra at home for compression. Patient tolerated the procedure well and was sent to PACU in satisfactory condition. Patient will be sent home on antibiotics and pain medication. She will keep her head elevated during the initial postop period. Patient will followup in a week for a wound check and for discussion of the pathology report and for discussion of the microbiology report. Will remove the sutures in 2 weeks. Will remove the drain in 1-2 weeks. Grafts/Implants Used: None. - Complications None. - Admit VTE Documentation VTE Present on Admission: No VTE Mechan Device Prophylaxis: SCD's VTE Pharm Prophylaxis ordered?: No Code Visit Surgery Charges CPT - 44568 ICD-10 - N61.1, N64.4, N63.42, S21.002S, F17.200 09099 N61.1, N64.4, N63.42, S21.002S, F17.200
== END 2018-06-04 13:33 | disposition home or self-care (01) ==
LOC: SDC 08:43 → AC 08:43
PROVIDERS: Family Provider Family Medicine; PCP Family Medicine; Referring Provider Surgery; Visit Provider Surgery
PROC: (CPT 11406; principal; 2018-06-04 09:15)
DX: N61.0 Mastitis without abscess (principal); N60.32 Fibrosclerosis of left breast; L90.5 Scar conditions and fibrosis of skin; F17.200 Nicotine dependence, unspecified, uncomplicated
CPT/HCPCS: 11406; 12034; 87070; 87075; 87102; 87186; 87205; 87206; 88305; J7120; J2405

== ENCOUNTER → 2018-06-23 12:11 | Outpatient (CLI) | payer MEDICAID, SELFPAY ==
[2018-06-23 10:16] VITALS: BMI 30.1
== END ==
PROVIDERS: Family Provider Family Medicine; PCP Family Medicine; Referring Provider Nurse Practitioner Family; Visit Provider Nurse Practitioner Family
DX: N61.1 Abscess of the breast and nipple (principal); N64.4 Mastodynia; S21.002A Unspecified open wound of left breast, initial encounter; N63.42 Unspecified lump in left breast, subareolar
CPT/HCPCS: 87070; 87075; 87205

== ENCOUNTER 2018-09-28 11:02 | Emergency (ER) | payer MEDICAID, SELFPAY ==
[2018-08-13 14:01] VITALS: BMI 30.1
[2018-09-28 11:04] VITALS: BP 121/83; PULSE 96; RESP 18; TEMP 36.6; O2SAT 100; BMI 25.0
[2018-09-28] MEDS: HYDROcodone Bitartrate/Apap 5/325 Tablet PO (11:53)
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
== END 2018-09-28 13:26 | disposition home or self-care (01) ==
PROVIDERS: Emergency Provider Emergency Medicine; Family Provider Family Medicine; PCP Family Medicine
DX: M54.5 Low back pain (principal); S40.012A Contusion of left shoulder, initial encounter; V86.65XA Passenger of 3- or 4- wheeled all-terrain vehicle (ATV) injured in nontraffic accident, initial encounter; Y93.I9 Activity, other involving external motion; Y92.89 Other specified places as the place of occurrence of the external cause; Y99.8 Other external cause status
CPT/HCPCS: 72100; 72170; 73030; 99283

== ENCOUNTER → 2018-10-06 09:26 | Outpatient (CLI) | payer MEDICAID, SELFPAY ==
[2018-08-13 14:01] VITALS: BMI 30.1
--- NOTE | 2018-09-06 13:39 | PCM.HP.BLA ---
History and Physical Date of Admission: 09/07/18 HISTORY OF PRESENT ILLNESS 38 year old woman presents with a painful recurrent left breast abscess scar contour deformity in the periareolar area. She initially developed the abscess shortly after she gave about 18 months ago. She did not breast feed. She had nipple drainage. She denies fever. She denies trauma. A mammogram and ultrasound was done on 10/21/17. The mammogram showed a 3.6 x 3.5 cm slightly irregular nodular density in the retroareolar region of the left breast. The ultrasound showed a 2.6 x 2.7 x 3.2 cm complex solid and cystic mass in the retroareolar region of the left breast suspicious for abscess. She saw Dr. Bhakta who performed drainage of the fluid collection in her office under ultrasound guidance. She did this 4 times according to the patient. The fluid collection has recurred. A recent culture on 01/16/18 showed Anaerobic cocci. She was placed on Augmentin. Because of its location in the retroareolar region, she went to the OR on 02/05/18 where she underwent surgical preparation left breast in retroareolar region with incision and drainage and excisional debridement abscess (12 cm2). The wound was left open and daily Silver dressing changes were started. Operative culture showed MRSE and she was treated with Levaquin. After a couple of months the wound healed with residual painful scar contour deformity. She had further surgery on 06/04/18 where she underwent surgical preparation left breast at periareolar area with excisional debridement 6 cm recurrent painful infected abscess scar contour deformity and reconstruction with 8 cm complex secondary wound closure. Postop she developed some ulceration at the base of the nipple with persistent drainage. Aquacel Silver dressing changes were started. Wound culture showed Anaerobic cocci and she was treated with Flagyl. She presents today for further debridement with surgical preparation of the left breast at the nipple with complex secondary wound closure. PAST MEDICAL HISTORY history tubal recurrent painful abscess left breast in retroareolar region. Nipple discharge left breast. pseudoptosis breasts. PAST SURGICAL HISTORY section Surgical preparation left breast in retroareolar region with incision and drainage and excisional debridement abscess (12 cm2) - 02/05/18 Surgical preparation left breast at periareolar area with excisional debridement 6 cm recurrent painful infected abscess scar contour deformity and reconstruction with 8 cm complex secondary wound closure - 06/04/18 ALLERGIES Penicillins MEDICATIONS Augmentin and Levaquin in the past. FAMILY HISTORY Grandfather - Colon cancer Uncle - Colon cancer Grandfather - Heart disease, Hypertension Grandmother - Heart disease, Hypertension SOCIAL HISTORY Smoking Status: Current every day smoker alcohol intake: current alcohol intake frequency: a few times a month substance use type: does not use REVIEW OF SYSTEMS General - Denies fever, fatigue, and weight loss. Eyes - Denies cataracts and glaucoma. ENT - Denies nasal congestion and sore throat. Endocrine - Denies excessive thirst and urination. Skin - Denies skin cancer. Has a left breast recurrent abscess scar contour deformity in the retroareolar region. Had operative incision and drainage of the abscess in 02/19. Had further debridement and secondary wound closure in 05/23. Has persistent ulceration at base of the nipple. Musculoskeletal - Denies joint pain, joint stiffness, weakness of muscles and joints, back pain, and arthritis. Neuro - Denies headaches. Cardiovascular - Denies chest pain, fatigue, and shortness of breath with exertion. Psych - Denies anxiety and depression. Respiratory - Denies chronic cough and shortness of breath. Patient is a smoker. Gastrointestinal - Denies nausea, vomiting, diarrhea, and constipation. Hematologic - Denies abnormal bruising and bleeding. Genitourinary - Denies hematuria and urinary frequency. PHYSICAL EXAMINATION General - Alert and Oriented. Bra size is 36 C. HEENT - PERRL. EOMI. Throat is clear. Neck - Supple and nontender. No cervical adenopathy. Breasts - In the left breast there is a periareolar scar inferiorly that has healed. There is an ulcer at the base of the nipple that measures 1.5 cm. No evidence of infection noted. Some tenderness to palpation. No purulent drainage noted. Breast has some residual firmness in the area of the previous dissection that is slowly softening up. Reassured the patient that the cavity was large after the operative debridement, and the firmness should soften up over time. No breast masses in the right breast. No axillary adenopathy. Breast width is 15 cm. Nipple is located at inframammary fold. Some pseudoptosis is present. No skin retraction. No skin dimpling. Lungs - Clear to auscultation. Heart - Regular rate and rhythm. Abdomen - Soft and nondistended. Extremities - FROM. No axillary adenopathy. Radial pulses are palpable. Neuro - CN II-XII grossly intact. Psych - Normal mood and affect. ASSESSMENT 1. Nonhealing ulcer left breast at nipple. 2. s/p excisional debridement recurrent painful infected abscess scar contour deformity and reconstruction with complex secondary wound closure. 3. s/p incision and drainage of abscess. 4. Smoker. PLAN Patient has an ulcer at the base of the nipple that is tender to palpation. Recommend surgical preparation of this nonhealing ulcer left breast at nipple with complex secondary wound closure. Will send tissue to Pathology for analysis to rule out carcinoma. Will send tissue to Microbiology for culture. A positive culture will necessitate antibiotic therapy. Previous cultures showed MRSE and Anaerobic cocci. Will treat perioperatively with Vancomycin and Flagyl. Depending on the size of the cavity, I may spray some Jennifer absorbable hemostat into the wound to minimize seroma formation. Also a drain may be necessary as well. Breast has some residual firmness in the area of the previous dissection that is slowly softening up. Told the patient that the cavity was large after the operative debridement, and the firmness should soften up over time. Discussed with her the need to proceed with operative debridement nonhealing ulcer inferior base left nipple with complex secondary wound closure. If further infection develops, would reassess for further operative debridement which would necessitate removal of the nipple with a mastectomy. Patient voices understanding. Surgery will be done under general anesthesia on an outpatient basis. Patient was informed of the risks and complications of the procedure including alternatives to surgery. These were discussed with the patient personally. Patient voices understanding and wishes to proceed. Some of the risks and complications were included in a form from the [employer]. Encouraged patient to stop smoking as it may have deleterious effects on wound healing.
[2018-09-28 11:04] VITALS: BMI 25.0
== END ==
PROVIDERS: Family Provider Family Medicine; PCP Family Medicine; Referring Provider Surgery; Visit Provider Surgery
PROC: (CPT 19020; principal; 2018-09-07 10:25)
DX: R69 Illness, unspecified (principal)

== ENCOUNTER 2023-07-31 17:26 | Emergency (ER) | payer OTHER, SELFPAY ==
[2023-07-31 17:27] VITALS: BP 131/90; PULSE 81; RESP 16; TEMP 35.8; O2SAT 100; BMI 26.6
--- NOTE | 2023-07-31 17:45 | EX.ED.DYSGE1 ---
HPI <DAVID Chaudhary - Last Filed: 07/31/23 18:48> History of Present Illness Chief Complaint: Chest Other Narrative Narrative: 43-year-old female states she had a left breast abscess drained surgically by Dr. Ray about 3-4 years ago. Since the procedure she states she has had a small area under the left nipple that drains fluid like a masters almost daily. She has had breast pain consistently over the last few years since the procedure. It seems worse over the last week and she is concerned this is an infection. She has had no skin changes or redness. She has had no increased drainage and no fever or chills. She is not diabetic or immunocompromised. She states Dr. Ray and her BRICK KILN BURNER retired and she is not sure who to follow-up with. PFSH <DAVID Chaudhary - Last Filed: 07/31/23 18:48> [facility] Medical History (Updated 07/31/23 @ 18:30 by DAVID Chaudhary) Abnormal mammogram history tubal Home Medications cyclobenzaprine 10 mg tablet 10 mg PO TID PRN Muscle Spasm #20 tabs 09/28/18 [Rx Last Taken Unknown] naproxen 500 mg tablet 500 mg PO BID PRN #20 tabs 09/28/18 [Rx Last Taken Unknown] Allergy/AdvReac Type Severity Reaction Status Date / Time Penicillins Allergy Hives Verified 07/31/23 17:27 Family History Grandfather Colon cancer Uncle Colon cancer Grandfather Heart disease Hypertension Grandmother Heart disease Hypertension Surgical History History of section Social History (Updated 08/17/18 @ 13:48 by Victoria Foss WILD LIFE PHOTOGRAPHER, WILD LIFE PHOTOGRAPHER-C) Smoking Status: Current every day smoker tobacco type: cigarettes alcohol intake: current alcohol intake frequency: a few times a month substance use type: does not use ROS <DAVID Chaudhary - Last Filed: 07/31/23 18:48> ROS ED ROS Narrative Constitutional: Negative for fever, chills, malaise. CVS: Negative for chest pain. Respiratory: Negative for shortness of breath. Skin: Negative for rash. EXAM <DAVID Chaudhary - Last Filed: 07/31/23 18:48> Physical Exam Narrative Exam Narrative: CONST: Patient sitting in no acute distress. EYES: Normal inspection. NECK: Normal inspection. RESP: No respiratory distress, CTAB. CVS: Regular rate and rhythm, no murmur, no gallop. SKIN: Normal inspection of both breasts, they appear symmetric on the left breast has no swelling or skin changes. No nipple discharge. Tender over lateral aspect of the breast with no fluctuance or crepitus. No axillary lymphadenopathy. Bedside ultrasound shows breast tissue without signs of fluid collection or abscess. EXTREMITIES: Normal appearance, no pedal edema. NEURO: Oriented x4. PSYCH: Normal affect. Const Vital Signs: 07/31/23 17:27 07/31/23 17:26 07/31/23 18:26 Temperature 96.5 F L 97.6 F L Temperature Source Temporal Pulse Rate 81 89 Respiratory Rate 16 16 Respiratory Effort Normal Blood Pressure 131/90 H 124/64 H Blood Pressure Mean 103 84 Pulse Ox 100 99 Oxygen Delivery Method Room Air <Dr. Arslan Hannah MD - Last Filed: 07/31/23 19:30> Physical Exam Const Vital Signs: 07/31/23 17:27 07/31/23 17:26 07/31/23 18:26 Temperature 96.5 F L 97.6 F L Temperature Source Temporal Pulse Rate 81 89 Respiratory Rate 16 16 Respiratory Effort Normal Blood Pressure 131/90 H 124/64 H Blood Pressure Mean 103 84 Pulse Ox 100 99 Oxygen Delivery Method Room Air MDM <DAVID Chaudhary - Last Filed: 07/31/23 18:48> [facility] Narrative Medical decision making narrative: History gathered from: Patient and significant other Patient states she has had left breast pain over the last few years and she had an infection surgically drained by plastic surgery. Pain seems worse over the last week. She appears well and nontoxic and is afebrile with normal vital signs. The left breast has no signs of swelling, cellulitis, or palpable abnormalities and appears symmetric with the right. Bedside ultrasound shows normal breast tissue with no signs of abscess or fluid collection. Patient was treated with IM Toradol and advised to take [id number] analgesia. I discussed she can follow-up with her primary care and also provided referrals to plastic surgery and BRICK KILN BURNER. She was discharged in stable condition. <Dr. Arslan Hannah MD - Last Filed: 07/31/23 19:30> [facility] MDM Narrative Medical decision making narrative: History gathered from: Patient and significant other Patient states she has had left breast pain over the last few years and she had an infection surgically drained by plastic surgery. Pain seems worse over the last week. She appears well and nontoxic and is afebrile with normal vital signs. The left breast has no signs of swelling, cellulitis, or palpable abnormalities and appears symmetric with the right. Bedside ultrasound shows normal breast tissue with no signs of abscess or fluid collection. Patient was treated with IM Toradol and advised to take [id number] analgesia. I discussed she can follow-up with her primary care and also provided referrals to plastic surgery and BRICK KILN BURNER. She was discharged in stable condition. I have personally performed a face to face assessment of the patient and have reviewed the [facility] Note. I performed a substantive portion of the visit including all aspects of the following. My santos findings include: History is remarkable for breast pain since surgery by Dr. Ray 3 years ago. She believes she has a recurrent abscess. She states her small amount of drainage noted inferior the left areola. She denies fever or chills. She denies dimpling of her breast. There is no asymmetry of her breast. Exam is patient has fibrocystic disease of her breast. There is no fluctuance. There is no erythema, warmth or induration. There is no lymphangitis. There is no x-ray lymphadenopathy. Heart is regular. Rate is normal. There is no murmur, gallop or rub. Lungs are clear auscultation with symmetric breath sounds. Medical Decision Making clinically patient has no signs of infection. Ultrasound was performed areas of discomfort and where she reports drainage. There is no fluid collection. There is dense breast tissue noted. Patient was informed the ultrasound reveals no evidence of fluid collection to suggest abscess. She was referred to linoleum printer and plastic surgeon in [facility]. Other additions or changes: Patient was discharged to home. Significant other commented that this visit was a waste of time. He and the patient were informed that we have identified that she does not have an infection. Unfortunately the cause of her pain which has been present for 3 years is unknown. And for this reason, will refer to SURVEY INTERVIEWER and plastics. Procedures <Dr. Arslan Hannah MD - Last Filed: 07/31/23 19:30> Other Procedures Procedure(s): Sound of breast soft tissue assessing for abscess. There was no abnormality noted. Discharge Plan Triage Chief Complaint: Chest Other ED Midlevel Provider: Swapna Pyle ED Provider: Arslan Hannah Dx/Rx/DC Orders Clinical Impression: Breast pain, left Instructions: Breast Pain (Mastalgia) Prescriptions: No Action cyclobenzaprine 10 MG tablet 10 mg PO TID PRN (Reason: Muscle Spasm) Qty: 20 0RF naproxen 500 MG tablet 500 mg PO BID PRN Qty: 20 0RF Primary Care Provider: Reece Dixon Referrals: Josefina Byrd MD [Med Staff - Active Staff] - Idania Romero MD [Med Staff - Active Staff] - Reece Dixon MD [Primary Care Provider] - Activity Restrictions/Additional Instructions: The breast ultrasound shows no sign of fluid or abscess. Please follow-up with BRICK KILN BURNER and plastic surgery which are both listed above. Alternate Tylenol and ibuprofen as needed for pain. Disposition Disposition: Home, Self Care Discharge Date/Time: 07/31/23 18:48
[2023-07-31 18:26] VITALS: BP 124/64; PULSE 89; RESP 16; TEMP 36.4; O2SAT 99
[2023-07-31] MEDS: Ketorolac 30 MG/ML Syringe IM (18:43)
== END 2023-07-31 18:48 | disposition home or self-care (01) ==
PROVIDERS: Emergency Provider Emergency Medicine; PCP Family Medicine; Visit Provider Emergency Medicine
DX: N64.4 Mastodynia (principal); F17.210 Nicotine dependence, cigarettes, uncomplicated
CPT/HCPCS: 96372; 99282